=== PATIENT | female | born 1930 | race Caucasian/White ===

== ENCOUNTER 2018-04-10 22:34 | Inpatient (IN) | payer OTHER ==
[~2018-04-10] VITALS: Ht 152.4 cm; Wt 53.1 kg
[2018-04-10 22:38] VITALS: BP_SYST 155
[2018-04-10] MEDS ORDERED: IPRATROPIUM/ALBUTEROL SULFATE 3 ML AMPUL.NEB (DUONEB) ONE (22:51)
[2018-04-10] MEDS ORDERED: DEXAMETHASONE SOD PHOSPHATE 10 MG/ML VIAL IVP ONE (23:00)
[2018-04-10] MEDS ORDERED: IPRATROPIUM/ALBUTEROL SULFATE 3 ML AMPUL.NEB (DUONEB) INH ONE (23:00)
[2018-04-10 23:14] LABS: HEMATOCRIT 38.5 % (36-48); HEMOGLOBIN 12.4 g/dL (12.0-16.0); MEAN CORPUSCULAR HEMOGLOBIN 30 pg (27-31); MEAN CORPUSCULAR HGB CONC 32 % (32-36); MEAN CORPUSCULAR VOLUME 92 fL (79.0-98.0); PLATELET COUNT (AUTO) 246 K/uL (130-430); RED BLOOD CELL COUNT(AUTO) 4.17 MIL/uL (4.2-6.2); RED CELL DISTRIBUTION WIDTH 14.9 % (9.0-15.0); WHITE BLOOD COUNT (AUTO) 21.4 K/uL (4.8-10.8)
[2018-04-10 23:30] LABS: ANION GAP 7 (5-15); CALCIUM 9.5 mg/dL (8.4-11.0); CHLORIDE 95 mmol/L (98-107); CREATININE 1.12 mg/dL (0.55-1.30); GLUCOSE 131 mg/dL (70-99); POTASSIUM 3.7 mmol/L (3.5-5.1); SODIUM SERUM 136 mmol/L (136-145); UREA NITROGEN, BLOOD 30 mg/dL (8-21)
[2018-04-10] MEDS ORDERED: cefTRIAXone 1 GM in D5W 50 ML IV ONE (23:30)
[2018-04-10] MEDS ORDERED: AZITHROMYCIN 500 MG in NS 250 ML IV ONE (23:30)
[2018-04-10 23:35] LABS: INR 1.1 (0.8-1.2); PROTHROMBIN TIME 10.9 SECS (9.5-12.5)
[2018-04-10 23:41] LABS: ALANINE AMINOTRANSFERASE 19 U/L (12-78); ALBUMIN 2.7 g/dL (3.4-4.8); ASPARTATE AMINOTRANSFERASE 19 U/L (10-37); TOTAL BILIRUBIN 0.6 mg/dL (0.0-1.0)
[2018-04-10] MEDS ORDERED: ALBU90AE IH (23:48)
[2018-04-10] MEDS ORDERED: FLUT1DIS3 IH (23:48)
[2018-04-10] MEDS ORDERED: FOLI-43 PO (23:48)
[2018-04-10] MEDS ORDERED: HYDR-3925 PO (23:48)
[2018-04-10] MEDS ORDERED: ALBU8.5H8 INH (23:48)
[2018-04-10] MEDS ORDERED: DILT300C3 PO (23:48)
[2018-04-10] MEDS ORDERED: IPRA4AER INH (23:48)
[2018-04-10] MEDS ORDERED: LEVO25TA7 PO (23:48)
[2018-04-10 23:49] LABS: ATYPICAL LYMPHOCYTES % 0 % (0-0); BAND % (MANUAL) 4 % (0-6); BASOPHILS % (MANUAL) 0 % (0-2); EOSINOPHILS % (MANUAL) 0 % (0-7); LYMPHOCYTES % (MANUAL) 7 % (20-46); METAMYELOCYTES % 2 % (0-0); MONOCYTES % (MANUAL) 6 % (0-11)
[2018-04-10] MEDS ORDERED: cefTRIAXone 1 GM VIAL ONE (23:58)
[2018-04-10] MEDS ORDERED: AZITHROMYCIN 500 MG/VIAL (ZITHROMAX) IV ONE (23:59)
[2018-04-11] VITALS (12 sets, daily range): BP systolic 94–168
[2018-04-11] MEDS ORDERED: ACETAMINOPHEN 325 MG TABLET PO PRN ×2 (01:45→08:15)
[2018-04-11] MEDS ORDERED: HYDROcodone/ACETAMIN 10-325 MG TAB PO ONE (03:45)
[2018-04-11] MEDS ORDERED: IPRATROPIUM/ALBUTEROL SULFATE 3 ML AMPUL.NEB (DUONEB) INH SCH (06:00)
[2018-04-11] MEDS ORDERED: DILTIAZEM HCL 300 MG CAP.SR.24H PO SCH (08:15)
[2018-04-11] MEDS ORDERED: ASPIRIN 81 MG TAB.CHEW PO ONE (08:30)
[2018-04-11] MEDS ORDERED: LEVOTHYROXINE SODIUM 0.1 MG TABLET PO ONE (08:30)
[2018-04-11] MEDS ORDERED: LEVOTHYROXINE SODIUM 0.025 MG TABLET PO ONE (08:30)
[2018-04-11] MEDS ORDERED: DILTIAZEM HCL 120 MG CAP.SR.24H PO ONE (08:30)
[2018-04-11] MEDS ORDERED: DILTIAZEM HCL 180 MG CAP.SR.24H PO ONE (08:30)
[2018-04-11] MEDS: FAMOTIDINE 20 MG TABLET PO SCH ×2 (09:00→09:32)
[2018-04-11] MEDS ORDERED: IPRATROPIUM BROM 0.5 MG/2.5 ML VIAL.NEB (ATROVENT) INH PRN (09:15)
[2018-04-11] MEDS ORDERED: LevALBUTEROL HCL 1.25 MG/0.5 ML *CONC.* VIAL.NEB (XOPENEX CONC.) INH PRN (09:15)
[2018-04-11] MEDS ORDERED: methylPREDNISolone SOD SUCC 40 MG/ML VIAL IVP ONE (09:30)
[2018-04-11] MEDS ORDERED: FUROSEMIDE 20 MG/2 ML VIAL IVP ONE (09:30)
[2018-04-11 10:53] LABS: BASOPHILS % (AUTO) 0.1 % (0.0-2.0); HEMATOCRIT 39.5 % (36-48); HEMOGLOBIN 12.9 g/dL (12.0-16.0); LYMPHOCYTES # (AUTO) 0.4 K/uL (1.0-5.5); LYMPHOCYTES % (AUTO) 3.4 % (20.5-51.5); MEAN CORPUSCULAR HEMOGLOBIN 30 pg (27-31); MEAN CORPUSCULAR HGB CONC 33 % (32-36); MEAN CORPUSCULAR VOLUME 92 fL (79.0-98.0); MONOCYTES # (AUTO) 0.2 K/uL (0.0-1.0); MONOCYTES % (AUTO) 1.8 % (1.7-9.3); NEUTROPHILS # (AUTO) 11.5 K/uL (1.8-7.7); NEUTROPHILS % (AUTO) 94.7 % (40.0-70.0); PLATELET COUNT (AUTO) 252 K/uL (130-430); RED BLOOD CELL COUNT(AUTO) 4.28 MIL/uL (4.2-6.2); RED CELL DISTRIBUTION WIDTH 14.4 % (9.0-15.0); WHITE BLOOD COUNT (AUTO) 12.1 K/uL (4.8-10.8)
[2018-04-11] MEDS: LEVOFLOXACIN 500 MG/D5W 100 ML IV SCH (11:20)
[2018-04-11 11:28] LABS: THYROID STIMULATING HORMONE 0.31 uIu/mL (0.36-3.74)
[2018-04-11] MEDS: IPRATROPIUM BROM 0.5 MG/2.5 ML VIAL.NEB (ATROVENT) INH SCH ×2 (14:03→19:47)
[2018-04-11] MEDS: LevALBUTEROL HCL 1.25 MG/0.5 ML *CONC.* VIAL.NEB (XOPENEX CONC.) INH SCH ×2 (14:03→19:47)
[2018-04-11] MEDS: methylPREDNISolone SOD SUCC 40 MG/ML VIAL IVP SCH (20:12)
[2018-04-11 20:14] LABS: FREE T4 (FREE THYROXINE) 0.9 ng/dl (0.8-1.5)
[2018-04-12] VITALS (7 sets, daily range): BP systolic 117–169
[2018-04-12 01:28] LABS: BILIRUBIN,URINE NEGATIVE (NEGATIVE); CLARITY/URINE CLEAR (CLEAR); COLOR,URINE YELLOW (YELLOW); GLUCOSE,URINE NEGATIVE (NEGATIVE); KETONES,URINE NEGATIVE (NEGATIVE); LEUKOCYTE ESTERASE ,URINE NEGATIVE (NEGATIVE); NITRITE, URINE NEGATIVE (NEGATIVE); PH,URINE 5.5 (5.0-8.0); PROTEIN URINE 2+ (NEGATIVE); UROBILINOGEN,URINE 0.2 (0.2-1.0)
[2018-04-12 01:33] LABS: BLOOD, URINE TRACE (NEGATIVE)
[2018-04-12] MEDS: LevALBUTEROL HCL 1.25 MG/0.5 ML *CONC.* VIAL.NEB (XOPENEX CONC.) INH SCH ×4 (01:37→19:59)
[2018-04-12 01:38] LABS: BACTERIA,URINE RARE /HPF (None Seen); RBC,URINE 0-3 /HPF (0-3); WBC,URINE 0-3 /HPF (0-3)
[2018-04-12] MEDS: IPRATROPIUM BROM 0.5 MG/2.5 ML VIAL.NEB (ATROVENT) INH SCH ×4 (01:38→19:59)
[2018-04-12] MEDS: LEVOTHYROXINE SODIUM 0.075 MG TABLET PO SCH (06:30)
[2018-04-12] MEDS ORDERED: LEVOTHYROXINE SODIUM 0.1 MG TABLET PO SCH (07:00)
[2018-04-12] MEDS: methylPREDNISolone SOD SUCC 40 MG/ML VIAL IVP SCH ×2 (08:46→20:41)
[2018-04-12] MEDS: ASPIRIN 81 MG TAB.CHEW PO SCH ×2 (08:46→08:50)
[2018-04-12] MEDS: FAMOTIDINE 20 MG TABLET PO SCH ×2 (08:47→08:49)
[2018-04-12] MEDS: LEVOFLOXACIN 500 MG/D5W 100 ML IV SCH (08:47)
[2018-04-12] MEDS: DILTIAZEM HCL 180 MG CAP.SR.24H PO SCH (08:48)
[2018-04-12] MEDS: DILTIAZEM HCL 120 MG CAP.SR.24H PO SCH (08:49)
[2018-04-12 08:54] LABS: CHLORIDE 98 mmol/L (98-107); POTASSIUM 4.5 mmol/L (3.5-5.1); SODIUM SERUM 138 mmol/L (136-145)
[2018-04-12 08:55] LABS: ALANINE AMINOTRANSFERASE 23 U/L (12-78); ALBUMIN 2.6 g/dL (3.4-4.8); ANION GAP 6 (5-15); ASPARTATE AMINOTRANSFERASE 16 U/L (10-37); CALCIUM 9.4 mg/dL (8.4-11.0); CREATININE 1.39 mg/dL (0.55-1.30); GLUCOSE 160 mg/dL (70-99); TOTAL BILIRUBIN 0.3 mg/dL (0.0-1.0); UREA NITROGEN, BLOOD 51 mg/dL (8-21)
[2018-04-13] MEDS: LevALBUTEROL HCL 1.25 MG/0.5 ML *CONC.* VIAL.NEB (XOPENEX CONC.) INH SCH ×4 (00:52→19:10)
[2018-04-13] MEDS: IPRATROPIUM BROM 0.5 MG/2.5 ML VIAL.NEB (ATROVENT) INH SCH ×4 (00:52→19:11)
[2018-04-13] MEDS: LEVOTHYROXINE SODIUM 0.075 MG TABLET PO SCH (06:07)
[2018-04-13 07:23] LABS: ANION GAP 7 (5-15); ASPARTATE AMINOTRANSFERASE 18 U/L (10-37); CHLORIDE 98 mmol/L (98-107); CREATININE 1.42 mg/dL (0.55-1.30); GLUCOSE 149 mg/dL (70-99); POTASSIUM 4.5 mmol/L (3.5-5.1); SODIUM SERUM 139 mmol/L (136-145); TOTAL BILIRUBIN 0.2 mg/dL (0.0-1.0); UREA NITROGEN, BLOOD 53 mg/dL (8-21)
[2018-04-13 07:24] LABS: ALANINE AMINOTRANSFERASE 24 U/L (12-78); ALBUMIN 2.5 g/dL (3.4-4.8)
[2018-04-13 07:53] LABS: HEMATOCRIT 36.5 % (36-48); HEMOGLOBIN 12.1 g/dL (12.0-16.0); MEAN CORPUSCULAR HEMOGLOBIN 31 pg (27-31); MEAN CORPUSCULAR HGB CONC 33 % (32-36); MEAN CORPUSCULAR VOLUME 92 fL (79.0-98.0); PLATELET COUNT (AUTO) 305 K/uL (130-430); RED BLOOD CELL COUNT(AUTO) 3.96 MIL/uL (4.2-6.2); RED CELL DISTRIBUTION WIDTH 14.3 % (9.0-15.0); WHITE BLOOD COUNT (AUTO) 11.4 K/uL (4.8-10.8)
[2018-04-13 07:54] LABS: BASOPHILS % (AUTO) 0.1 % (0.0-2.0); EOSINOPHILS % (AUTO) 0.1 % (0.0-4.0); LYMPHOCYTES # (AUTO) 0.5 K/uL (1.0-5.5); MONOCYTES # (AUTO) 0.2 K/uL (0.0-1.0); MONOCYTES % (AUTO) 1.6 % (1.7-9.3); NEUTROPHILS # (AUTO) 10.8 K/uL (1.8-7.7); NEUTROPHILS % (AUTO) 94.2 % (40.0-70.0)
[2018-04-13 08:00] VITALS: BP_SYST 120
[2018-04-13] MEDS: LEVOFLOXACIN 500 MG/D5W 100 ML IV SCH (08:58)
[2018-04-13] MEDS: DILTIAZEM HCL 120 MG CAP.SR.24H PO SCH (08:59)
[2018-04-13] MEDS: DILTIAZEM HCL 180 MG CAP.SR.24H PO SCH (09:00)
[2018-04-13] MEDS: ASPIRIN 81 MG TAB.CHEW PO SCH (09:00)
[2018-04-13] MEDS: FAMOTIDINE 20 MG TABLET PO SCH (09:00)
[2018-04-13] MEDS: methylPREDNISolone SOD SUCC 40 MG/ML VIAL IVP SCH ×2 (09:16→22:00)
[2018-04-13 12:22] VITALS: BP_SYST 112
[2018-04-13 16:11] VITALS: BP_SYST 130
[2018-04-13 20:05] VITALS: BP_SYST 148
[2018-04-14] MEDS: LevALBUTEROL HCL 1.25 MG/0.5 ML *CONC.* VIAL.NEB (XOPENEX CONC.) INH SCH ×3 (00:55→13:53)
[2018-04-14] MEDS: IPRATROPIUM BROM 0.5 MG/2.5 ML VIAL.NEB (ATROVENT) INH SCH ×3 (00:55→13:53)
[2018-04-14] MEDS: LEVOTHYROXINE SODIUM 0.075 MG TABLET PO SCH (06:03)
[2018-04-14 08:09] VITALS: BP_SYST 168
[2018-04-14] MEDS: LEVOFLOXACIN 500 MG/D5W 100 ML IV SCH (09:17)
[2018-04-14] MEDS: FAMOTIDINE 20 MG TABLET PO SCH (09:17)
[2018-04-14] MEDS: methylPREDNISolone SOD SUCC 40 MG/ML VIAL IVP SCH (09:17)
[2018-04-14] MEDS: ASPIRIN 81 MG TAB.CHEW PO SCH (09:18)
[2018-04-14] MEDS: DILTIAZEM HCL 120 MG CAP.SR.24H PO SCH (09:18)
[2018-04-14] MEDS: DILTIAZEM HCL 180 MG CAP.SR.24H PO SCH (09:19)
[2018-04-14 10:16] VITALS: BP_SYST 168
[2018-04-14] MEDS ORDERED: amLODIPine BESYLATE 5 MG TABLET PO ONE (11:00)
[2018-04-14 11:35] VITALS: BP_SYST 158
[2018-04-14 14:34] VITALS: BP_SYST 166
[2018-04-14 15:22] VITALS: BP_SYST 158
[2018-04-14 16:18] VITALS: BP_SYST 158
[2018-04-14] MEDS ORDERED: DOXAZOSIN MESYLATE 2 MG TABLET PO SCH (21:00)
[2018-04-15] MEDS ORDERED: PREDNISONE 20 MG TABLET PO SCH (09:00)
== END 2018-04-14 16:35 | disposition home or self-care (01) | DRG 871 ==
LOC: SED 22:34 → STU 04-11 01:35 → SIC 04-11 02:50 → STU 04-11 09:11
PROVIDERS: ADMIT Internal Medicine; ATTEND Internal Medicine
DX: A41.9 Sepsis, unspecified organism (principal); J18.9 Pneumonia, unspecified organism; J96.91 Respiratory failure, unspecified with hypoxia; E44.0 Moderate protein-calorie malnutrition; C34.92 Malignant neoplasm of unspecified part of left bronchus or lung; I50.30 Unspecified diastolic (congestive) heart failure; J44.0 Chronic obstructive pulmonary disease with (acute) lower respiratory infection; J44.1 Chronic obstructive pulmonary disease with (acute) exacerbation; I48.0 Paroxysmal atrial fibrillation; M19.90 Unspecified osteoarthritis, unspecified site; E03.9 Hypothyroidism, unspecified; R54 Age-related physical debility; G89.4 Chronic pain syndrome; I11.0 Hypertensive heart disease with heart failure; J20.9 Acute bronchitis, unspecified; Z85.3 Personal history of malignant neoplasm of breast; Z87.891 Personal history of nicotine dependence; Z90.12 Acquired absence of left breast and nipple; Z92.3 Personal history of irradiation; Z99.81 Dependence on supplemental oxygen; Z68.22 Body mass index [BMI] 22.0-22.9, adult; Z88.0 Allergy status to penicillin; Z88.8 Allergy status to other drugs, medicaments and biological substances
CPT/HCPCS: 36415; 36600; 71045; 76770; 80048; 80053; 81000-TC; 82803-TC; 83605; 83880; 84439; 84443-TC; 84484; 85007; 85025; 85027; 85379; 85610-TC; 85730-TC; 87040-TC; 87081; 93005; 93306; 94640; 94760; 96365; 96367; 96375; 97112-GP; 97116-GP; 97530-GP; 99291; G0378; J0456; J0696; J1030; J1100; J1940; J1956; J7612; J7620